=== PATIENT | female | born 2000 | race Caucasian/White ===

== ENCOUNTER 2021-12-12 08:20 | Emergency (ER) | payer OTHER ==
[~2021-12-12] VITALS: Ht 157.5 cm; Wt 70.8 kg
[2021-12-12 08:23] VITALS: BP 139/62
--- NOTE | 2021-12-12 08:28 | NUR ---
PT AMBULATED TO ER BED 4 WITH STEADY GAIT
--- NOTE | 2021-12-12 08:30 | NUR ---
21/F AMBULATED TO BED 4 WITH STEADY GAIT, C/O ABDOMINAL PAIN RADIATING TO LOWER BACK WITH N/VX2/DX4 SINCE LAST NIGHT. DENIES CP, DYSURIA, DENIES TAKING MEDS AT HOME. MEDHX: DENIES ALLERGIES: PROMETHAZINE
[2021-12-12] MEDS ORDERED: KETOROLAC 30 MG/ML VIAL IM ONE (08:40)
[2021-12-12] MEDS ORDERED: ONDANSETRON 4 MG ODT PO ONE (08:40)
--- NOTE | 2021-12-12 08:48 | NUR ---
URINE SAMPLE COLLECTED.
--- NOTE | 2021-12-12 09:00 | NUR ---
PO CHALLENGE STARTED. APPLE JUICE PROVIDED
[2021-12-12] MEDS ORDERED: ONDA-188 PO (09:11)
--- NOTE | 2021-12-12 09:15 | NUR ---
PT IS HOLDING DOWN APPLE JUICE, DR PRESTON MADE AWARE.
== END 2021-12-12 09:20 | disposition home or self-care (01) ==
LOC: MED 08:20
DX: R11.2 Nausea with vomiting, unspecified (principal); R19.7 Diarrhea, unspecified; R10.13 Epigastric pain; Z90.49 Acquired absence of other specified parts of digestive tract; Z79.899 Other long term (current) drug therapy; Z88.8 Allergy status to other drugs, medicaments and biological substances
CPT/HCPCS: 81002; 81025; 96372; 99283; J1885; Q0162

== ENCOUNTER 2022-04-24 20:56 | Emergency (ER) | payer OTHER ==
[~2022-04-24] VITALS: Ht 157.5 cm; Wt 74.5 kg
[~2022-04-24 20:56] MED LIST: ONDA-188 PO
[2022-04-24 21:16] VITALS: BP 130/76
--- NOTE | 2022-04-24 23:08 | NUR ---
PT TAKEN TO BED 2
--- NOTE | 2022-04-24 23:28 | NUR ---
ER MD AT BEDSIDE EXAMINING PT
--- NOTE | 2022-04-24 23:29 | NUR ---
21 Y/O FEMALE BIBS FROM HOME, C/O HEADACHEX TODAY. PT STATES SHE HAS HAD A HEADACHE SINCE THE MORNING AND IS LOCATED IN TOP AND FRONT OF HEAD. PT COMPLAINS OF DIZZY, NAUSEA, JITTERY, AND SENSITIVE TO LIGHT. PT SAYS IT GOT WORSE AROUND LUNCH AND SUBSIDED TO A 7/10 THIS EVENING. DENIES COUGH, VOMIT, FEVER, OR DIARRHEA. PT TOOK TYLENOL 500MG AT 1857 WITH NO RELIEF. A/OX4, GCS-15; AMBULATORY W/O ASSISTANCE; UNLABORED BREATHING AND SPEAKING IN FULL SENTENCES. DENIES PMH/RX ALL TO PROMETHAZINE
[2022-04-24] MEDS ORDERED: KETOROLAC 30 MG/ML VIAL IM ONE (23:40)
[2022-04-24] MEDS ORDERED: diazePAM 5 MG TAB PO ONE (23:40)
--- NOTE | 2022-04-25 00:12 | NUR ---
COVID/MARIANO SWAB COLLECTED AND WALKED TO LAB
[2022-04-25] MEDS ORDERED: NAPR-54 PO (01:28)
[2022-04-25 01:59] VITALS: BP 126/74
--- NOTE | 2022-04-25 02:00 | NUR ---
Patient discharged with v/s stable. Written and verbal after care instructions given and explained. Patient alert, oriented and verbalized understanding of instructions. Ambulatory with steady gait. All questions addressed prior to discharge. ID band removed. Patient advised to follow up with PMD. Rx of NAPROSYN given. Patient educated on indication of medication including possible reaction and side effects. Opportunity to ask questions provided and answered. VSS, A/OX4, AMBULATORY, UNLABORED BREATHING, AND CALM DEMEANOR.
== END 2022-04-25 02:00 | disposition home or self-care (01) ==
LOC: MED 20:56
DX: R51.9 Headache, unspecified (principal); Z20.822 Contact with and (suspected) exposure to COVID-19; Z90.49 Acquired absence of other specified parts of digestive tract; Z79.1 Long term (current) use of non-steroidal anti-inflammatories (NSAID)
CPT/HCPCS: 81002; 81025; 87426; 96372; 99283; J1885

== ENCOUNTER 2022-12-20 20:25 | Emergency (ER) | payer OTHER ==
[~2022-12-20] VITALS: Ht 157.5 cm; Wt 72.6 kg
[~2022-12-20 20:25] MED LIST changes: +NAPR-54 PO
[2022-12-20 20:38] VITALS: BP 94/61
--- NOTE | 2022-12-20 20:47 | NUR ---
to bed 6
--- NOTE | 2022-12-20 21:28 | NUR ---
20G IV CATH PLACED IN L AC. LABS OBTAINED AND SENT TO LAB. URINE COLLECTED
[2022-12-20 21:34] LABS: BASOPHILS % (AUTO) 0.3 % (0.0-2.0); EOSINOPHILS # (AUTO) 0.1 K/uL (0-0.4); EOSINOPHILS % (AUTO) 0.7 % (0.0-4.0); HEMATOCRIT 44.3 % (36-48); HEMOGLOBIN 15.1 g/dL (12.0-16.0); LYMPHOCYTES % (AUTO) 8.6 % (20.5-51.1); MEAN CORPUSCULAR HEMOGLOBIN 30 pg (27-31); MEAN CORPUSCULAR HGB CONC 34 g/dL (33-37); MEAN CORPUSCULAR VOLUME 87.4 fL (80-94); MONOCYTES # (AUTO) 0.4 K/uL (0.8-1.0); MONOCYTES % (AUTO) 3.4 % (1.7-9.3); NEUTROPHILS # (AUTO) 10.1 K/uL (1.8-7.7); PLATELET COUNT (AUTO) 320 K/uL (140-450); RED BLOOD CELL COUNT(AUTO) 5.07 MIL/uL (4.20-5.40); RED CELL DISTRIBUTION WIDTH 13.1 % (11.6-13.7); WHITE BLOOD COUNT (AUTO) 11.6 K/uL (4.8-10.8)
[2022-12-20 21:49] LABS: ALBUMIN 4.1 g/dL (3.4-5.0); ANION GAP 15.1 (8-16); CARBON DIOXIDE 23.7 mmol/L (21-32); CREATININE 0.8 mg/dL (0.6-1.3); POTASSIUM 3.8 mmol/L (3.5-5.1); TOTAL BILIRUBIN 0.7 mg/dL (0.0-1.0)
--- NOTE | 2022-12-20 22:32 | NUR ---
22YR OLD FEMALE BIB SELF C/O ABD PAIN X1DAY. SHARP 10/10 PAIN RADIATES TO MID AND LOWER BACK. DENIES URINATION DIFFICULTY OR PAIN. PT IS A&OX4 SKIN WARM AND DRY RESP EVEN AND UNLABORED. PT STATES HAVING V/N/D WITH ABD PAIN. PT IN BED WITH HOB ELEVATED. BED AT LOWEST POSITION SIDE RAILS UP X2. PROMETHAZINE NO MED HX
[2022-12-20] MEDS ORDERED: MORPHINE SULFATE 4 MG/ML SYR IVP ONE ×2 (22:55→23:25)
[2022-12-20] MEDS ORDERED: NACL 0.9% 1,000 ML IV ONE (22:55)
[2022-12-20] MEDS ORDERED: ONDANSETRON 4 MG/2 ML VIAL IVP ONE (22:55)
--- NOTE | 2022-12-20 23:31 | NUR ---
CT HERE TO TAKE PT .
--- NOTE | 2022-12-21 00:11 | NUR ---
PT RESTING IN BED ON BEDSIDE [employer] EXAMINER.
[2022-12-21] MEDS ORDERED: metroNIDAZOLE 500 MG/NS PREMIX 100 ML IV ONE (00:40)
--- NOTE | 2022-12-21 02:50 | NUR ---
PT RESTING IN BED WITH HOB ELEVATED. RESP EVEN AND UNLABORED. PT DENIES PAIN.
[2022-12-21] MEDS ORDERED: METR-435 PO (03:23)
--- NOTE | 2022-12-21 03:25 | NUR ---
Patient discharged with v/s stable. Written and verbal after care instructions given and explained. Patient verbalized understanding. Ambulatory with steady gait. All questions addressed prior to discharge. Advised to follow up with PMD.
[2022-12-21 03:33] VITALS: BP 103/50
--- NOTE | 2022-12-21 03:40 | NUR ---
The patient's care was reviewed and supervised by Carolina Garvin RN.
== END 2022-12-21 03:25 | disposition home or self-care (01) ==
LOC: MED 20:25
DX: A09 Infectious gastroenteritis and colitis, unspecified (principal); Z90.49 Acquired absence of other specified parts of digestive tract; Z79.899 Other long term (current) drug therapy; Z79.1 Long term (current) use of non-steroidal anti-inflammatories (NSAID); Z79.2 Long term (current) use of antibiotics; Z88.8 Allergy status to other drugs, medicaments and biological substances
CPT/HCPCS: 36415; 74176; 80053; 82150; 83690; 84703; 85025; 87040; 96361; 96365; 96375; 99285; J2270; J2405; J3490; J7030